=== PATIENT | female | born 1975 | race Caucasian/White ===

== ENCOUNTER → 2017-11-27 07:05 | Outpatient (CLI) | payer BC, SELFPAY ==
--- NOTE | 2017-11-27 07:13 | NM_ITS ---
History and Indications: Hypertension, hyperlipidemia, family history, chest pain and shortness of breath Procedure: Patient exercised on Coy protocol 7 minutes and 30 seconds, resting heart rate was 100 bpm, resting blood pressure 145/81, with exercise maximum heart rate achieved was 1 68 bpm is equal to 95% of the maximum predicted heart rate and a blood pressure was 168/80. Test was started due to shortness of breath patient denied any complained of chest pain. Patient has good exercise capacity achieved 10.1mets of workload on treadmill, the blood pressure response to exercise was adequate. Electrocardiogram: Resting electrocardiogram showed sinus rhythm, with exercise there is less than 1.[address] segment depression noted from the baseline EKG. The EKG portion of the exercise Myoview is negative for ischemia. Cardiac stress and resting SPECT images: Cardiac stress and rest SPECT images were obtained using technetium 99 Myoview 10.5 mCi at rest and 32.7 mCi at stress, gated SPECT further analysis of segmental wall motion and calculation of ejection fraction also done. Cardiac stress and rest images show a mild fixed defect in the anterior wall with normal contractility in the gated SPECT is likely secondary to soft tissue attenuation, no reversible ischemia seen. Computer derived ejection fraction 61% with no obvious regional wall motion abnormality, right ventricle is normal size and contractility. Conclusion: 1. The EKG portion of the exercise Myoview is negative for ischemia, patient has good exercise capacity achieved 10.1mets of workload on treadmill, the blood pressure response to exercise was adequate. Test was started due to shortness of breath, patient complained of chest pain. 2. No obvious scintigraphic evidence of reversible ischemia seen, ejection fraction is 61% with no obvious regional wall motion abnormality, normal size and contractility.
--- NOTE | 2017-11-27 09:06 | HMH.ITSHM ---
EFFEXOR LORTAB LISINOPRIL HCTZ VISTERIL
== END ==
LOC: RAD 07:08
PROVIDERS: Family Provider Nurse Practitioner Family; PCP Internal Medicine Adolescent Medicine; Visit Provider Nurse Practitioner Family
DX: R06.09 Other forms of dyspnea (principal); I10 Essential (primary) hypertension; Z82.49 Family history of ischemic heart disease and other diseases of the circulatory system
CPT/HCPCS: 78452; 93017; A9502

== ENCOUNTER → 2018-04-11 07:02 | Outpatient (CLI) | payer BC, SELFPAY ==
[2018-04-11 07:51] LABS: Basophils % 0.5 % (0.1-2.0); Eosinophils # 0.2 K/mm3 (0.0-0.4); Eosinophils % 4.1 % (0.1-12.0); Hematocrit 39.6 % (37.0-47.0); Hemoglobin 12.8 g/dL (12.2-16.2); Lymphocytes # 1.3 K/mm3 (0.7-4.5); Lymphocytes % 23.8 K/mm3 (10-50); Mean Corpuscular HGB Conc 32.4 g/dL (31.8-35.4); Mean Corpuscular Hemoglobin 29.6 pg (27.0-31.2); Mean Corpuscular Volume 91.3 fl (81-99); Mean Platelet Volume 7.4 fl (7.4-10.4); Monocytes # 0.3 K/mm3 (0.1-1.0); Monocytes % 6.1 % (1.7-9.3); Neutrophils # 3.5 K/mm3 (1.8-7.8); Neutrophils % 65.6 % (37.0-80.0); Platelet Count 217 K/mm3 (142-424); Red Blood Count 4.34 M/mm3 (4.20-5.40); Red Cell Distribution Width 12.7 % (11.5-17.5); White Blood Count 5.3 K/mm3 (4.8-10.8)
[2018-04-11 08:38] LABS: Alanine Aminotransferase 23 U/L (12-78); Albumin Level 3.6 gm/dL (3.4-5.0); Albumin/Globulin Ratio 1.2 (1.1-1.8); Alkaline Phosphatase 54 U/L (46-116); Anion Gap 13.8 mEq/L (5-15); Aspartate Amino Transferase 14 U/L (15-37); Bilirubin,Total 0.4 mg/dL (0.2-1.0); Blood Urea Nitrogen 9 mg/dL (7-18); Calcium 9.4 mg/dL (8.5-10.1); Carbon Dioxide 26 mmol/L (21.0-32.0); Chloride 106 mmol/L (98-107); Chol/HDL Ratio 3.5 (1-3.5); Cholesterol 196 mg/dL (140-200); Creatinine,Serum 0.65 mg/dL (0.55-1.02); Estimated Glomerular Filt Rate 99 ml/min (>60); GFR (African American) 120 ML/MIN (>60); Globulin 2.9 gm/dl (1.3-3.2); Glucose 94 mg/dL (74-106); HDL Cholesterol 56 mg/dL (29-89); LDL Cholesterol 107 mg/dL (0-130); Potassium 3.8 mmoL/L (3.5-5.1); Sodium 142 mmol/L (136-145); Total Protein,Serum 6.5 gm/dL (6.4-8.2); Triglycerides 164 mg/dL (30-200); VLDL Cholesterol 33 mg/dL (0-40)
[2018-04-11 08:49] LABS: Erythrocyte Sedimentation Rate 14 mm/hr (0-20)
[2018-04-12 11:18] LABS: RA Latex Turbid. <10.0 IU/mL (0.0-13.9)
[2018-04-13 06:28] LABS: Antinuclear Antibodies, IFA Negative (.)
[2018-04-14 13:57] LABS: Anti-Cyclic Citrullinated Pept 4 units (0-19)
== END ==
PROVIDERS: Visit Provider Nurse Practitioner Family
DX: I10 Essential (primary) hypertension (principal); E78.1 Pure hyperglyceridemia; M12.9 Arthropathy, unspecified
CPT/HCPCS: 36415; 80053; 80061; 84443; 84550; 85025; 85651; 86038; 86200; 86431

== ENCOUNTER → 2020-01-07 15:50 | Outpatient (CLI) | payer BC, SELFPAY ==
--- NOTE | 2020-01-07 16:01 | XR_ITS ---
PROCEDURE: XR FOOT WT BEARING RT 3V CLINICAL INDICATION: pain COMPARISON: FTL3 FOOT-LT-3 VIEWS from 02/09/2016 FINDINGS: No fracture or dislocation. No lytic or blastic change. There is normal mineralization. The joint spaces are well-preserved. No significant degenerative/arthritic changes. No erosive changes evident. Other findings:Borderline pes planus. Small calcaneal spur IMPRESSION: Borderline pes planus. Small calcaneal spur otherwise negative Dictated by: Nba Ojeda MD 01/07/2020 17:09 Electronically signed by Nba Ojeda MD in [place] 01/07/2020 17:09
--- NOTE | 2020-01-07 16:01 | XR_ITS ---
PROCEDURE: XR FOOT WT BEARING LT 3V CLINICAL INDICATION: pain COMPARISON: FTL3 FOOT-LT-3 VIEWS from 02/09/2016 FINDINGS: No fracture or dislocation. No lytic or blastic change. There is normal mineralization. The joint spaces are well-preserved. No significant degenerative/arthritic changes. No erosive changes evident. Other findings:Borderline pes planus. Small calcaneal spur. Mild prominence of the posterior talar process IMPRESSION: No acute findings. Borderline pes planus. Small calcaneal spur. Mild prominence of the posterior talar process Dictated by: Nba Ojeda MD 01/07/2020 17:10 Electronically signed by Nba Ojeda MD in [place] 01/07/2020 17:10
== END ==
PROVIDERS: PCP Internal Medicine Adolescent Medicine; Visit Provider Podiatrist
DX: M79.672 Pain in left foot (principal); M79.671 Pain in right foot
CPT/HCPCS: 73630

== ENCOUNTER 2020-04-30 22:14 | Emergency (ER) | payer BC, SELFPAY ==
[2020-04-30 22:30] VITALS: BP 128/81; PULSE 99; RESP 18; TEMP 37; O2SAT 97; BMI 40.3
--- NOTE | 2020-04-30 22:40 | XR_ITS ---
PROCEDURE: XR KNEE RT 3V CLINICAL INDICATION: fall COMPARISON: No exams were available for comparison FINDINGS: No fracture or dislocation. No lytic or blastic change. There is normal mineralization. The joint spaces are well-preserved. No significant degenerative/arthritic changes. No erosive changes evident. Other findings:None. IMPRESSION: No acute findings. Dictated by: Lio Ellis 05/01/2020 08:42 Electronically signed by Lio Ellis in [place] 05/01/2020 08:42
--- NOTE | 2020-04-30 22:40 | XR_ITS ---
PROCEDURE: XR FOOT LT MIN 3V CLINICAL INDICATION: fall COMPARISON: FTL3 FOOT-LT-3 VIEWS from 02/09/2016 XR FOOT WT BEARING RT 3V from 01/07/2020 XR FOOT WT BEARING LT 3V from 01/07/2020 FINDINGS: No fracture or dislocation. No lytic or blastic change. There is normal mineralization. The joint spaces are well-preserved. Calcaneal spurs are noted.. No erosive changes evident. At that IMPRESSION: Renal spurs, no fracture Dictated by: Lio Ellis 05/01/2020 08:43 Electronically signed by Lio Ellis in [place] 05/01/2020 08:43
--- NOTE | 2020-04-30 22:49 | HMH.EDWNDL ---
ED Disposition Clinical Impression: Laceration Right knee injury Qualifiers: Encounter type: initial encounter Qualified Code(s): S89.91XA - Unspecified injury of right lower leg, initial encounter Injury of foot Qualifiers: Encounter type: initial encounter Laterality: left Qualified Code(s): S99.922A - Unspecified injury of left foot, initial encounter Disposition: Home, Self-Care Condition on Discharge: Good Instructions: DI for Laceration Repair -- Simple Additional Instructions: suture out 10-12 days and see pcp and dr alberto for follow up Referrals: Michi Gibbs MD [Primary Care Provider] - Sabiha Alberto DPM [Staff Physician] - - Critical Care Critical Care Time: No Attestation: On 04/30/20, the high probability of a clinically significant, sudden or life threatening deterioration of the following system(s) required my full and direct attention, intervention and personal management. The time I documented below is in addition to time spent performing reported procedures but includes the following listed in this critical care notation. Medical Decision Making - Medical Records Medical records reviewed: Yes: I reviewed the patient's medical records. - Fei Inquiry Pt receiving controlled substance: No Vital Signs: 04/30/20 22:30 Temperature 98.6 F Temperature Source Oral Pulse Rate [Right] 99 H Respiratory Rate 18 Blood Pressure [Right Arm] 128/81 Blood Pressure Mean [Right Arm] 96 Blood Pressure Source [Right Arm] Automatic Cuff Blood Pressure Position [Right Arm] Sitting 02 Sat by Pulse Oximetry 97 Oxygen Delivery Method Room Air Orders (Tests/Meds): ED MEDICATIONS Discontinued Medications Generic Name Dose Route Start Last Admin Trade Name Freq PRN Reason Stop Dose Admin Tetanus/Diphtheria Toxoids 0.5 ml 04/30/20 22:40 04/30/20 22:59 Tenivac 0.5ml Syringe IM 04/30/20 22:41 0.5 ml .ONCE ONE Administration ORDERS Category Date Time Status Knee XR right 3 views [XR knee RT 3V] Stat Exams 04/30/20 22:40 Taken XR foot LT min 3V Stat Exams 04/30/20 22:40 Taken - Radiology Data #1 Image(s): Knee, Foot/Toes Image Reviewed: Yes I reviewed the patient's radiology image Preliminary Findings: No Fracture Seen Wound/Laceration HPI - General Chief Complaint: Extremity Injury, Lower Stated Complaint: AO 2144 fell Lac to R Knee Time Seen by Provider: 04/30/20 22:45 Mode of Arrival: Ambulatory Source of Information: Patient, Spouse, Medical Record Limitations: No Limitations Description of Symptoms (Recalled from ER Triage Doc. by RN): fell on [place] lac to right knee and swelling on left foot - History of Present Illness HPI narrative: trip fall with rt knee and lt foot injury and lac rt knee tonight - denied any other injury Onset (ago): hour(s) Extremity Location: Left: foot, Right: knee Place: home Patient tetanus UTD: No Context: fall Associated symptoms: none - Related Data Home Medications Medication Instructions Recorded Confirmed Triamterene/Hydrochlorothiazid 1 mg PO DAILY 08/07/18 02/25/20 [Maxzide-25 tablet] bupropion HCl 150 mg 24 hr tablet, mg PO 01/21/20 02/25/20 extended release hydrocodone 5 mg-acetaminophen 325 PO 01/21/20 02/25/20 mg tablet lisinopril 10 mg tablet PO 01/21/20 02/25/20 venlafaxine 150 mg mg PO 01/21/20 02/25/20 capsule,extended release 24 hr venlafaxine 75 mg capsule,extended mg PO 01/21/20 02/25/20 release 24 hr Previous Rx's Medication Instructions Recorded diclofenac sodium 1 % topical gel 4 g TOPICAL QID PRN #30 g 01/21/20 naproxen 500 mg tablet 500 mg PO BID PRN #60 tab 01/21/20 Allergies Allergy/AdvReac Type Severity Reaction Status Date / Time INGREDIENT: NO KNOWN - NO Allergy Unknown Uncoded 01/21/20 16:00 KNOWN DRUG ALLERGY [facility] History - Hepatitis A Screen Drug use history?: No High risk sexual behaviors?: No History of sexually transmitted i
[2020-05-01 00:10] VITALS: BP 126/78; PULSE 92; RESP 16; TEMP 37; O2SAT 96
== END 2020-05-01 00:14 | disposition home or self-care (01) ==
PROVIDERS: Emergency Provider Emergency Medicine; PCP Internal Medicine Adolescent Medicine
DX: S81.011A Laceration without foreign body, right knee, initial encounter (principal); W01.0XXA Fall on same level from slipping, tripping and stumbling without subsequent striking against object, initial encounter; Y92.014 Private driveway to single-family (private) house as the place of occurrence of the external cause; I10 Essential (primary) hypertension; Z90.49 Acquired absence of other specified parts of digestive tract; F41.9 Anxiety disorder, unspecified; Z79.899 Other long term (current) drug therapy; Z23 Encounter for immunization
CPT/HCPCS: 12001; 73562; 73630; 90471; 90714; 96372; 99282

== ENCOUNTER 2020-11-11 11:39 | Emergency (ER) | payer BC, SELFPAY ==
[2020-11-11 11:39] VITALS: BP 146/70; PULSE 101; RESP 16; TEMP 37.1; O2SAT 99; BMI 46.7
--- NOTE | 2020-11-11 12:18 | HMH.EDUTC ---
[facility] [place] Disposition Clinical Impression: Bronchitis, Exposure to COVID-19 virus Disposition: Home, Self-Care Condition on Discharge: Good Instructions: Preventing the Spread of Coronavirus Discharge Instructions Additional Instructions: Drink plenty of fluids. Take tylenol for pain or fever. Return if you begin to have difficulty breathing. Follow up with your regular doctor. GO TO THE ER FOR ANY WORSENING SYMPTOMS Prescriptions: Benzonatate [Tessalon Perle 100mg Cap] 100 mg PO TIDP PRN #30 cap PRN Reason: Cough Transmission Status: Received by [facility] Azithromycin [Z-Tomasz 250mg Tab*] 250 mg PO UD DOSE PK #6 tab Transmission Status: Received by [facility] Referrals: Michi Gibbs MD [Primary Care Provider] - Time of Disposition: 12:20 Medical Decision Making - Medical Records Medical records reviewed: No: I reviewed the patient's medical records. - Fei Inquiry Pt receiving controlled substance: No Vital Signs: 11/11/20 11:39 11/11/20 12:28 Temperature 98.7 F 98.7 F Temperature Source Oral Oral Pulse Rate 101 H Pulse Rate [Right] 101 H Respiratory Rate 16 16 Blood Pressure 146/70 H Blood Pressure [Right Arm] 146/70 H Blood Pressure Mean [Right Arm] 95 02 Sat by Pulse Oximetry 99 Oxygen Delivery Method Room Air [facility] [place] HPI - General Stated complaint: Covid test Time Seen by Provider: 11/11/20 12:18 Mode of Arrival: Ambulatory Source of Information: Patient Limitations: No Limitations Description of Symptoms (Recalled from Triage Doc. by RN): pt request COVID test. pt c/o cough,fever,fatigue HEENT Symptoms (Recalled from RN notes): Yes Resp Symptoms (Recalled from RN notes): Yes Skin Symptoms (Recalled from RN notes): No MS Symptoms (Recalled from RN notes): No Functional Status (Recalled from RN notes): wnl - History of Present Illness Provider Complaint: She c/o cough, sore throat and chest congestion for the past 2 days. - Related Data Home Medications Medication Instructions Recorded Confirmed Triamterene/Hydrochlorothiazid 1 mg PO DAILY 08/07/18 02/25/20 [Maxzide-25 tablet] bupropion HCl 150 mg 24 hr tablet, mg PO 01/21/20 02/25/20 extended release hydrocodone 5 mg-acetaminophen 325 PO 01/21/20 02/25/20 mg tablet lisinopril 10 mg tablet PO 01/21/20 02/25/20 venlafaxine 150 mg mg PO 01/21/20 02/25/20 capsule,extended release 24 hr venlafaxine 75 mg capsule,extended mg PO 01/21/20 02/25/20 release 24 hr Previous Rx's Medication Instructions Recorded diclofenac sodium 1 % topical gel 4 g TOPICAL QID PRN #30 g 01/21/20 naproxen 500 mg tablet 500 mg PO BID PRN #60 tab 01/21/20 Azithromycin [Z-Tomasz 250mg Tab*] 250 mg PO UD DOSE PK #6 tab 11/11/20 Benzonatate [Tessalon Perle 100mg 100 mg PO TIDP PRN #30 cap 11/11/20 Cap] Allergies Allergy/AdvReac Type Severity Reaction Status Date / Time INGREDIENT: NO KNOWN - NO Allergy Unknown Uncoded 01/21/20 16:00 KNOWN DRUG ALLERGY - Worker's Comp Is this a Worker's Comp case?: No Is this an H Worker's Comp?: No Is this a [place] Worker's Comp?: No [facility] History - Hepatitis A Screen Drug use history?: No High risk sexual behaviors?: No History of sexually transmitted infection?: No Currently employed?: No Childcare worker?: No Do you have indoor plumbing?: Yes Do you have electricity?: Yes Attestation statement:: This patient has been screened for Hepatitis A risk factors. I have reviewed the patient's past medical history: Yes Medical History: Reports:: Anxiety, Hypertension Denies:: Diabetes Mellitus Type 1, Diabetes Mellitus Type 2, Internal Pacemaker Other Medical History: Reports: Arthritis, Other Other Surgeries: Yes: Cholecystectomy, . No: Pacemaker Amputation: No Fractures: No Comment: Back surgery 12 years ago - Social History Smoking Status: Never smoker Alcohol Intake: never Substance Use Type: denies use Occupational Stat
[2020-11-11 12:28] VITALS: BP 146/70; PULSE 101; RESP 16; TEMP 37.1; O2SAT 99
--- NOTE | 2020-11-11 18:06 | PC.NURSE ---
PATIENT NOTIFIED OF POSITIVE COVID RESULTS
== END 2020-11-11 12:28 | disposition home or self-care (01) ==
PROVIDERS: Emergency Provider Nurse Practitioner Family; PCP Internal Medicine Adolescent Medicine
DX: U07.1 COVID-19 (principal); I10 Essential (primary) hypertension; F41.9 Anxiety disorder, unspecified; Z79.899 Other long term (current) drug therapy
CPT/HCPCS: 99202; G0463; U0003

== ENCOUNTER → 2020-12-01 17:43 | Outpatient (CLI) | payer BC, SELFPAY ==
[2020-12-01 18:14] LABS: Chloride 103 mmol/L (98-107); Potassium 3.9 mmoL/L (3.5-5.1); Sodium 138 mmol/L (136-145)
[2020-12-01 18:17] LABS: Alanine Aminotransferase 18 U/L (12-78); Albumin Level 4.4 g/dl (3.5-5.0); Albumin/Globulin Ratio 1.5 (1.1-1.8); Alkaline Phosphatase 58 U/L (38-126); Anion Gap 11.9 mEq/L (5-15); Aspartate Amino Transferase 28 U/L (14-36); Bilirubin,Total 0.4 mg/dl (0.2-1.3); Blood Urea Nitrogen 16 mg/dl (7-17); Carbon Dioxide 27 mmol/L (22.0-30.0); Cholesterol 205 mg/dl (140-200); Estimated Glomerular Filt Rate 77 ml/min (>60); GFR (African American) 93 ML/MIN (>60); Globulin 2.9 g/dL (1.3-3.2); Total Protein,Serum 7.3 g/dl (6.3-8.2); Triglycerides 338 mg/dl (30-150); VLDL Cholesterol 68 mg/dL (0-40)
[2020-12-01 18:18] LABS: Calcium 10.4 mg/dl (8.4-10.2); Glucose 105 mg/dl (74-100); HDL Cholesterol 68 mg/dl (40-60)
[2020-12-01 18:28] LABS: Direct LDL Cholesterol 90.78 mg/dL (100-129)
[2020-12-01 19:41] LABS: Basophils # 0.1 K/mm3 (0-0.2); Basophils % 0.6 % (0.1-2.0); Eosinophils # 0.4 K/mm3 (0.0-0.4); Eosinophils % 4.8 % (0.1-12.0); Hematocrit 41.4 % (37.0-47.0); Hemoglobin 13.3 g/dL (12.2-16.2); Lymphocytes # 2.1 K/mm3 (0.7-4.5); Lymphocytes % 24.7 % (10-50); Mean Corpuscular HGB Conc 32.1 g/dL (31.8-35.4); Mean Corpuscular Hemoglobin 29.6 pg (27.0-31.2); Mean Corpuscular Volume 92.3 fl (81-99); Mean Platelet Volume 8.1 fl (7.4-10.4); Monocytes # 0.5 K/mm3 (0.1-1.0); Monocytes % 5.5 % (1.7-9.3); Neutrophils # 5.4 K/mm3 (1.8-7.8); Neutrophils % 64.3 % (37.0-80.0); Platelet Count 268 K/mm3 (142-424); Red Blood Count 4.48 M/mm3 (4.20-5.40); Red Cell Distribution Width 13.4 % (11.5-17.5); White Blood Count 8.4 K/mm3 (4.8-10.8)
== END ==
PROVIDERS: Visit Provider Nurse Practitioner Family
DX: R06.02 Shortness of breath (principal); I10 Essential (primary) hypertension; Z79.899 Other long term (current) drug therapy
CPT/HCPCS: 36415; 80053; 80061; 85025

== ENCOUNTER → 2020-12-02 16:43 | Outpatient (CLI) | payer BC, SELFPAY ==
--- NOTE | 2020-12-02 16:52 | XR_ITS ---
PROCEDURE: XR CHEST 2V CLINICAL HISTORY: SOB COMPARISON: No exams were available for comparison FINDINGS: The cardiomediastinal silhouette and pulmonary vascularity are within normal limits. The lungs are clear without infiltrates, suspicious nodules, or pleural effusions. No acute bony abnormalities. IMPRESSION: No acute findings. Dictated by: Nba Ojeda MD 12/02/2020 21:58 Nba Ojeda MD in [place] 12/02/2020 21:58
== END ==
LOC: RAD 16:45
PROVIDERS: PCP Nurse Practitioner Family; Visit Provider Nurse Practitioner Family
DX: R06.02 Shortness of breath (principal); I10 Essential (primary) hypertension
CPT/HCPCS: 71046

== ENCOUNTER → 2021-09-20 09:28 | Outpatient (CLI) | payer BC, SELFPAY | PROVIDERS: PCP Internal Medicine Adolescent Medicine; Visit Provider Nurse Practitioner | DX: Z20.822 Contact with and (suspected) exposure to COVID-19 (principal) | CPT/HCPCS: C9803; U0003; U0005 ==

== ENCOUNTER → 2022-03-30 16:55 | Outpatient (CLI) | payer BC, SELFPAY ==
[2022-03-30 17:42] LABS: Basophils # 0.1 K/mm3 (0-0.2); Basophils % 1.2 % (0.1-2.0); Eosinophils # 0.2 K/mm3 (0.0-0.4); Eosinophils % 2.5 % (0.1-12.0); Hematocrit 40.5 % (37.0-47.0); Hemoglobin 13.6 g/dL (12.2-16.2); Lymphocytes # 2.2 K/mm3 (0.7-4.5); Lymphocytes % 26.9 % (10-50); Mean Corpuscular HGB Conc 33.7 g/dL (31.8-35.4); Mean Corpuscular Hemoglobin 32.3 pg (27.0-31.2); Mean Corpuscular Volume 95.7 fl (81-99); Monocytes # 0.4 K/mm3 (0.1-1.0); Monocytes % 4.6 % (1.7-9.3); Neutrophils # 5.3 K/mm3 (1.8-7.8); Neutrophils % 64.8 % (37.0-80.0); Platelet Count 272 K/mm3 (142-424); Red Blood Count 4.23 M/mm3 (4.20-5.40); Red Cell Distribution Width 13.3 % (11.5-17.5); White Blood Count 8.3 K/mm3 (4.8-10.8)
[2022-03-30 17:48] LABS: Barbiturates Screen,Urine Negative ng/ml (<200); Benzodiazepines Screen,Urine Negative ng/ml (<200)
[2022-03-30 17:49] LABS: Amphetamine/Metha Screen,Urine Negative ng/ml (<1000)
[2022-03-30 17:50] LABS: Alanine Aminotransferase 17 U/L (12-78); Albumin Level 4.2 g/dl (3.5-5.0); Albumin/Globulin Ratio 1.6 (1.1-1.8); Alkaline Phosphatase 49 U/L (38-126); Anion Gap 12.1 mEq/L (5-15); Aspartate Amino Transferase 23 U/L (14-36); Blood Urea Nitrogen 16 mg/dl (7-17); Calcium 9.7 mg/dl (8.4-10.2); Cannabinoid Screen,Urine Negative ng/ml (<50); Carbon Dioxide 29 mmol/L (22.0-30.0); Chloride 99 mmol/L (98-107); Cocaine Screen,Urine Negative ng/ml (<300); Estimated Glomerular Filt Rate 77 ml/min (>60); GFR (African American) 93 ML/MIN (>60); Globulin 2.7 g/dL (1.3-3.2); Glucose 96 mg/dl (74-100); Potassium 4.1 mmoL/L (3.5-5.1); Sodium 136 mmol/L (136-145); Total Protein,Serum 6.9 g/dl (6.3-8.2)
[2022-03-30 17:51] LABS: Methadone Screen,Urine Negative ng/ml (<300)
[2022-03-30 17:52] LABS: Opiate Screen,Urine Positive ng/ml (<300); Phencyclidine Screen,Urine Negative ng/ml (<25)
[2022-03-30 17:57] LABS: Bilirubin,Total < 0.1 mg/dl (0.2-1.3)
[2022-03-30 18:11] LABS: HCG,Quantitative < 2 mIU/ml (0-5.42)
[2022-03-30 18:20] LABS: Thyroid Stimulating Hormone 1.17 uIU/mL (0.465-4.68)
[2022-04-01 08:19] LABS: FSH 3.8 mIU/mL (.); LH 8.5 mIU/mL (.)
== END ==
PROVIDERS: PCP Internal Medicine Adolescent Medicine; Visit Provider Obstetrics & Gynecology
DX: Z01.812 Encounter for preprocedural laboratory examination (principal); Z20.822 Contact with and (suspected) exposure to COVID-19; N95.1 Menopausal and female climacteric states; R87.618 Other abnormal cytological findings on specimens from cervix uteri; N92.0 Excessive and frequent menstruation with regular cycle
CPT/HCPCS: 80053; 80305; 82670; 83001; 83002; 84443; 84702; 85025; C9803; U0003; U0005

== ENCOUNTER 2022-04-01 06:18 | Day surgery (SDC) | payer BC, SELFPAY ==
--- NOTE | 2022-03-30 09:30 | SUR.PREOP ---
Attempted pre-op phone call. No answer at this time, left message w/ call back #.
[2022-04-01] VITALS (12 sets, daily range): BP systolic 111–164; BP diastolic 70–96; PULSE 77–90; RESP 12–18; TEMP 36.1–36.8; O2SAT 97–100; BMI 43.5
--- NOTE | 2022-04-01 07:34 | HMH.ANESCL ---
[facility] Anesthesia Checklist - Patient Identification Patient Identification: Arm Band - Structural Data Admitted From: Home Planned Operative Procedure/s: Lap Bilateral Tubal Ligation, D&C Consent for Planned Operative Procedure(s) Verified: Yes Verified Documents: Surgical Consent, History and Physical - NPO Status Verified Time NPO: 00:00 - Additional verifications Anesthesia Reactions: No Hx Blood Transfusions: No Blood Transfusion Reaction: No - Airway Assessment C-Spine Mobility Assessed: Yes (mp2) TMJ Mobility Assessed: Yes Dentition: Good Dentition - Neurological Assessment Level of Consciousness: Awake, Alert - Anesthesia Plan Anesthesia Risk discussed: Yes Anesthesia Plan: Verified ASA Class: III Anesthesia Type: General [facility] History I have reviewed the patient's past medical history: Yes Medical History: Reports:: Anxiety, Hypertension Denies:: Cancer, Diabetes Mellitus Type 1, Diabetes Mellitus Type 2, Internal Pacemaker, MRSA, Seizures *Have you ever received a pneumonia vaccine?: Yes *Have you received a flu vaccine this season?: Yes Other Medical History: Reports: Arthritis, Other. Denies: Blood Transfusion Reaction Anesthesia experience/problems:: nac Other Surgeries: Yes: Cholecystectomy, . No: Pacemaker Amputation: No Fractures: No - *Social History Last grade of school completed: High school graduate Smoking Status: Never smoker Alcohol Intake: never Alcohol Intake Frequency:: 0-2 drinks per day Substance Use Type: denies use *Occupational Status:: employed Housing: house Household Members: spouse, children *Travel in the last 8 weeks: None - Psychiatric History Pschychiatric History:: Reports:: Anxiety Family Hx:: Coronary Artery Disease, Hypertension
--- NOTE | 2022-04-01 09:44 | P.PN_ITS ---
[facility] Anesthesia Record Part I Intake, IV Amount: 1,200 Estimated blood loss (mL): 0 Urine output (mL): 0 Blood Pressure: 158/95 SaO2: 98 Pulse Rate: 85 Respiratory Rate: 12 Temperature: 98.2 F Patient is:: Awake, Stable Stable to PACU at:: 09:40
--- NOTE | 2022-04-01 10:54 | HMH.ANESII ---
[facility] Anesthesia Record Part II Discharge Time: 10:10 Destination: Surgical Day Care (OP Surgery) PACU nurse assessment reviewed?: Yes Patient Condition:: Good Anesthesia Complications:: None Swallowing reflex intact?: Yes Cyanosis?: No Blood Pressure: 143/88 Pulse Rate: 88 Temperature: 97.7 F Mental Status: Alert & Oriented Pain level:: 4 Nausea and/or vomitting:: None Intake, IV Amount: 0
--- NOTE | 2022-04-01 11:34 | HMH.OPNOTE ---
Date of procedure: 04/01/22 Pre-op Diagnosis:: 1. Undesired fertility 2. Unexplained endometrial cells on cervical cytology screening (pap smear) Post-op Diagnosis:: 1. Undesired fertility 2. Unexplained endometrial cells on cervical cytology screening (pap smear) 3. Cervical stenosis Procedure performed:: 1. Dilation and Curettage 2. Laparoscopic bilateral tubal ligation Surgeon:: Noemí Saenz MD COMPUTING MACHINE OPERATOR:: Eleno Galindo Anesthesia: GETA Estimated blood loss (mL): 10 Operative findings:: stenosis of cervix lower uterine segment densely adhesed to bladder anteriorly grossly normal appearing ovaries and fallopian tubes Operative note:: The patient was taken to the operating room and general anesthesia was administered. She was prepped/draped in lithotomy position. A uterine manipulator was not easily placed because of cervical stenosis. The cervix was progressively dilated until sufficient to accomodate the uterine manipulator. Sharp curettage was performed and the specimen sent for pathology. A HUMI was then placed for manipulation. Gloves were changed and attention was turned to the abdomen. A 5mm skin incision was made in the umbilical fold and the Verees needle was inserted through the peritoneum and into the abdominal cavity in standard fashion. The abdomen was insufflated with CO2 gas. A 5mm non-bladed trocar was inserted directly into the abdominal cavity and appropriate placement was confirmed with the laparoscope. No intra-abdominal injuries occurred during entry into the abdominal cavity, as confirmed visually with the laparoscope. The patient was placed in trendelenburg and a 8mm skin incision was made 2cm above the pubic symphysis. A 8mm non-bladed trocar was inserted under direct visualization, without complication. The uterus was elevated out of the pelvis in order to better visualize the anatomy. A survey of the pelvis and abdomen revealed the findings noted above. The uterus was angled towards the patient right and the left fallopian tube was grasped and a Filshie clip was placed over the tube. The clip was noted to completely occlude the tube. The uterus was then angled towards the patient left, and the right fallopian tube was grasped and a Filshie clip was placed over the tube. The clip was noted to completely occlude the tube. The uterine manipulator was removed. The abdomen was then evacuated of gas and all trocars removed. The skin incisions were closed with Dermabond. The patient tolerated the procedure well. Sponge/lap/needle/instrument counts were correct at conclusion of procedure. She was taken out of lithotomy position and awakened from anesthesia, and was taken to the recovery room in stable condition. Condition: stable Disposition: PACU Specimens:: endometrial Complications:: none
== END 2022-04-01 11:00 | disposition home or self-care (01) ==
LOC: OR 06:20
PROVIDERS: PCP Internal Medicine Adolescent Medicine; Visit Provider Obstetrics & Gynecology
PROC: 0UL74ZZ Occlusion of Bilateral Fallopian Tubes, Percutaneous Endoscopic Approach (ICD-10-PCS; CPT 58670; principal; 2022-04-01 08:00)
DX: N88.2 Stricture and stenosis of cervix uteri; R87.618 Other abnormal cytological findings on specimens from cervix uteri; F41.9 Anxiety disorder, unspecified; I10 Essential (primary) hypertension; Z79.899 Other long term (current) drug therapy; Z30.2 Encounter for sterilization
CPT/HCPCS: 58120; 58671; 96374; J2405; J2710

== ENCOUNTER → 2022-09-13 12:21 | Outpatient (CLI) | payer BC, SELFPAY ==
--- NOTE | 2022-09-13 12:36 | MM_ITS ---
PROCEDURE INFORMATION: Exam: MG Bilateral Screening 3D Mammography Exam date and time: 09/13/2022 12:32 PM Age: 46 years old Clinical indication: Screening examination TECHNIQUE: Imaging protocol: Bilateral Screening tomosynthesis and 2D mammography including computer-aided detection (CAD) when performed. COMPARISON: 1. MG RE DOMINIC DIGITAL SCREEN BILATERAL 07/28/2021 1:31 PM 2. MG RE DOMINIC DIGITAL SCREEN BILATERAL 04/10/2019 1:21 PM FINDINGS: MAMMOGRAPHY: Breast composition: There are scattered areas of fibroglandular density. Mass: None. Architectural distortion: None. Calcifications: No suspicious calcifications. Asymmetric density: None. Skin thickening: None. Axillary adenopathy: None. IMPRESSION: No mammographic evidence of malignancy. Annual screening is recommended unless otherwise clinically indicated. ASSESSMENT: BI-RADS Category 1: Negative
== END ==
PROVIDERS: PCP Internal Medicine Adolescent Medicine; Visit Provider Internal Medicine Adolescent Medicine
DX: Z12.31 Encounter for screening mammogram for malignant neoplasm of breast (principal)
CPT/HCPCS: 77063; 77067

== ENCOUNTER 2022-10-25 08:06 | Emergency (ER) | payer BC, SELFPAY ==
[2022-10-25 08:15] VITALS: BP 123/75; PULSE 78; RESP 20; TEMP 36.9; O2SAT 98; BMI 40.2
--- NOTE | 2022-10-25 08:25 | EXP.UTC ---
Discharge Plan Disposition Patient Disposition: Home, Self-Care Condition: Good Prescriptions Prescriptions: No Action venlafaxine 150 mg capsule,extended release 24hr 150 mg PO DAILY Label Comments: TAKE ONE CAPSULE BY MOUTH EVERY DAY lisinopril 10 mg tablet 20 mg PO DAILY Label Comments: TAKE ONE TABLET BY MOUTH TWICE DAILY venlafaxine 75 mg capsule,extended release 24hr 75 mg PO DAILY Label Comments: TAKE ONE CAPSULE BY MOUTH EVERY DAY diclofenac sodium [Voltaren] 1 % gel 4 g TP QID PRN (Reason: pain) Qty: 30 2RF Rx Instructions: apply to single knee, ankle, foot; gently massage into area; for foot includes sole/toes/top of foot bupropion HCl 300 mg tablet extended release 24 hr 300 mg PO DAILY Label Comments: TAKE ONE TABLET BY MOUTH EVERY DAY oxycodone 5 mg tablet 5 mg PO Q8H PRN (Reason: pain) Qty: 14 0RF triamterene-hydrochlorothiazid 1 EACH tablet 1 mg PO DAILY Referrals Follow up/Referrals: Michi Gibbs MD [Primary Care Provider] - See instructions Activity Restrictions/Add. Instructions Additional Instructions/Restrictions: *Monitor Temp, Over the counter Motrin or Tylenol as directed/as needed Tylenol every 4 hours and Motrin every 6 hours (as long as your family doctor has told you that you can take it) for fever or pain. and straight to ER if unable to lower temp less than 101.0 after medication given *Warm salt water gargles may help to soothe the throat *Throat Lozenges? *Warm fluids like tea with honey may help to soothe the throat? *Sleep elevated *Humidifier/Vaporizer Follow up IMMEDIATELY for new or worsening symptoms or no Noticeable improvement over the next 48-72 hours. 911 for difficulty breathing or swallowing You were tested for today for COVID19 your test result should be back in the next 24-48 hours, you may check your results on the [facility] [employer] [facility] Portal Clinical Impressions Clinical Impression: Viral syndrome Stand Alone Forms Stand Alone Forms: Work/School Release Instructions Patient Instructions: DI for COVID-19 (Suspected or Confirmed ), Coronavirus Disease 2019 Discharge ED Provider: Irish Roque [facility] HPI General Stated complaint: Covid+ 10/24, Cough, sore throat, Covid retest Time Seen by Provider: 10/25/22 08:25 History of Present Illness Provider Complaint: Patient states that she started feeling bad on Monday with body aches, chills headache and cough States that she took an at home COVID test yesterday and it was positive and her work required her to come here today to get a COVID test Related Data Home Medications Medication Instructions Recorded Confirmed triamterene 37.5 1 mg PO DAILY Hypertension 08/07/18 04/08/22 mg-hydrochlorothiazide 25 mg tablet lisinopril 10 mg tablet 20 mg PO DAILY BP 01/21/20 04/08/22 venlafaxine 150 mg 150 mg PO DAILY Anxiety 01/21/20 04/08/22 capsule,extended release 24 hr venlafaxine 75 mg capsule,extended 75 mg PO DAILY ANXIETY 01/21/20 04/08/22 release 24 hr bupropion HCl 300 mg 24 hr tablet, 300 mg PO DAILY . 03/14/22 04/08/22 extended release Previous Rx's Medication Instructions Recorded diclofenac sodium 1 % topical gel 4 g topical QID PRN pain #30 grams 01/21/20 (Voltaren) oxycodone 5 mg tablet 5 mg PO Q8H PRN pain #14 tabs 04/01/22 Allergies Allergy/AdvReac Type Severity Reaction Status Date / Time No Known Allergies Allergy Verified 04/08/22 09:17 [facility] Disclaimer: The information contained in this section may have been updated after the patient was seen, as this information can be updated by other users. Medical History (Updated 10/25/22 @ 08:33 by Linda Carreon RN) Hypertension Surgical History (Updated 10/25/22 @ 08:33 by Linda Carreon RN) History of section History of cholecystectomy Social History Smoking Status: Never smoker second
[2022-10-25 08:45] VITALS: BP 123/75; PULSE 78; RESP 20; TEMP 36.9; O2SAT 98
== END 2022-10-25 08:47 | disposition home or self-care (01) ==
PROVIDERS: Emergency Provider Nurse Practitioner; PCP Internal Medicine Adolescent Medicine
DX: U07.1 COVID-19 (principal); R05.9 Cough, unspecified; J02.9 Acute pharyngitis, unspecified
CPT/HCPCS: 99212; C9803; G0463; U0003; U0005

== ENCOUNTER → 2023-09-12 09:40 | Outpatient (POV) | payer BC, SELFPAY | PROVIDERS: Visit Provider Specialist/Technologist | DX: Z00.00 Encounter for general adult medical examination without abnormal findings (principal) ==

== ENCOUNTER 2023-12-19 13:11 | Outpatient (CLI) | payer BC, SELFPAY ==
--- NOTE | 2023-12-19 13:16 | MM_ITS ---
PROCEDURE INFORMATION: Exam: MG Bilateral Screening 3D Mammography Exam date and time: 12/19/2023 1:26 PM Age: 48 years old Clinical indication: Screening mammogram TECHNIQUE: Imaging protocol: Bilateral Screening tomosynthesis and 2D mammography including computer-aided detection (CAD) when performed. COMPARISON: 1. MG MM DIG SCREENING MAMM BI W/CAD 09/13/2022 12:32 PM 2. MG RE DOMINIC DIGITAL SCREEN BILATERAL 07/28/2021 1:31 PM 3. MG RE DOMINIC DIGITAL SCREEN BILATERAL 04/10/2019 1:21 PM FINDINGS: MAMMOGRAPHY: Breast composition: There are scattered areas of fibroglandular density. Mass: Mass within the upper right middle 1/3, not well-delineated on CC should be further assessed with spot views in CC/MLO projection. Ultrasound should also be performed. Architectural distortion: No new or suspicious architectural distortion. Calcifications: No new or suspicious calcifications are present Asymmetric density: No new or suspicious asymmetric density is present Skin thickening: None. Axillary adenopathy: None. IMPRESSION: Mass within the upper right middle 1/3, not well-delineated on CC should be further assessed with spot views in CC/MLO projection. Ultrasound should also be performed. ASSESSMENT: BI-RADS category 0: Incomplete-need additional imaging evaluation
== END 2023-12-19 23:59 ==
LOC: RAD 13:11
PROVIDERS: PCP Internal Medicine Adolescent Medicine; Visit Provider Internal Medicine Adolescent Medicine
DX: Z12.31 Encounter for screening mammogram for malignant neoplasm of breast (principal)
CPT/HCPCS: 77063; 77067

== ENCOUNTER 2024-01-01 13:33 | Outpatient (CLI) | payer BC, SELFPAY ==
--- NOTE | 2024-01-01 13:40 | US_ITS ---
PROCEDURE INFORMATION: Exam: US Right Breast, Complete Exam date and time: 01/01/2024 2:09 PM Age: 48 years old Clinical indication: Questionable right breast mass on screening mammogram dated 12/19/2023 TECHNIQUE: Imaging protocol: Complete ultrasound of all four quadrants of the right breast and the retroareolar regions, including ultrasound of the axilla when performed. COMPARISON: MG MM DIG SCREENING MAMM BI W/CAD 12/19/2023 1:26 PM FINDINGS: Breast: Sonographic images of the right breast including the retroareolar region, all 4 quadrants and the axilla do not demonstrate any solid or cystic masses. No architectural distortion or acoustical shadowing. No skin thickening or axillary adenopathy. Review the additional mammographic images demonstrate normal overlapping fibroglandular structures without persistent mass lesions seen IMPRESSION: No sonographic evidence of malignancy. Annual mammographic screening is recommended unless otherwise clinically indicated. ASSESSMENT: BI-RADS Category 1: Negative.
--- NOTE | 2024-01-01 14:40 | MM_ITS ---
PROCEDURE INFORMATION: Exam: MG Right Diagnostic Breast Tomosynthesis Exam date and time: 01/01/2024 2:28 PM Age: 48 years old Clinical indication: Patient recalled on the basis of a screening mammogram for further evaluation; Right breast; mass TECHNIQUE: Imaging protocol: Right Diagnostic tomosynthesis and 2D mammography including computer-aided detection (CAD) when performed. Unilateral or bilateral exam. COMPARISON: 1. MG MM DIG SCREENING MAMM BI W/CAD 12/19/2023 1:26 PM 2. MG MM DIG SCREENING MAMM BI W/CAD 09/13/2022 12:32 PM FINDINGS: MAMMOGRAPHY: Digital diagnostic spot compression views of the right breast and 90 degree lateral view of the right breast demonstrate normal overlapping fibroglandular structures without persistent mass or asymmetry identified. IMPRESSION: No mammographic evidence of malignancy. Annual bilateral mammographic screening is recommended unless otherwise clinically indicated. ASSESSMENT: BI-RADS Category 1: Negative
== END 2024-01-01 23:59 ==
LOC: RAD 13:34
PROVIDERS: PCP Internal Medicine Adolescent Medicine; Visit Provider Internal Medicine Adolescent Medicine
DX: R92.8 Other abnormal and inconclusive findings on diagnostic imaging of breast (principal); N63.10 Unspecified lump in the right breast, unspecified quadrant
CPT/HCPCS: 76641; 77061; 77065; G0279